=== PATIENT | female | born 1995 | race Caucasian/White ===

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

== ENCOUNTER 2017-04-22 17:43 | Emergency (ER) | payer OTHER ==
[~2017-04-22] VITALS: Ht 165.1 cm; Wt 78.0 kg
[~2017-04-22 17:43] MED LIST changes: +AZIT-57 PO; -CEFD1CAP14 PO; -ZTHM250 PO
[2017-04-22 17:48] VITALS: TEMP 38.5; Ht 165.1 cm; Wt 78.0 kg
[2017-04-22] MEDS ORDERED: AZITTAB PO (18:19)
[2017-04-22 18:57] VITALS: BP 120/78; PULSE 100; O2SAT 97
--- NOTE | 2017-04-23 02:25 | EMERGENCY ROOM VISIT NOTE ---
History First contact with patient: 18:06 Chief Complaint: ILLNESS Stated Complaint: COUGH, CHEST PAIN WITH COUGH, FEVER History of Present Illness The patient is a 22 year old female who presents to the Emergency Room with complaints of a productive cough and fever for the past 2 days. The patient reports being exposed to sick family members approximate 5 days ago. She has had fevers as high as 102.6F. She denies any myalgias, neck pain or significant headache. She has taken OTC cold and flu medications without significant relief. She reports having pneumonia in June of this year. She denies history of asthma or other chronic cardiopulmonary conditions. Review of Systems 10 system review was performed and was negative except for pertinent positives and negatives as indicated in history of present illness Past Medical/Surgical History Surgical Problems: (1) S/P tonsillectomy and adenoidectomy Family History No pertinent family history Social History Smoking Status: Never Smoker Alcohol Use: none Drug Use: none Marital Status: single Housing Status: lives with roommate Occupation Status: [employer] student Current/Historical Medications Scheduled Azithromycin (Zithromax Z-Gomez), 0 PO UD Physical Exam Vital Signs Date Time Temp Pulse Resp B/P (MAP) Pulse Ox O2 Delivery O2 Flow Rate FiO2 04/22/17 18:57 100 16 120/78 97 04/22/17 17:48 38.5 117 16 123/81 97 Room Air Physical Exam CONSTITUTIONAL: Healthy and well nourished. Alert and oriented X 3 with positive affect. Patient does not appear in any acute distress. HEENT: Normocephalic, atraumatic. Pupils equal, round and reactive. Examination shows bilateral mild TM bulging without air-fluid levels or purulent effusion. OROPHARYNX: Mild posterior pharyngeal erythema without tonsillar hypertrophy or exudates. NECK: Full active range of motion without discomfort. No nuchal rigidity. Negative Kernig's, negative Brudzinski sign. RESPIRATORY: Clear to auscultation bilaterally with no wheezing, crackles, rhonchi or stridor. CARDIOVASCULAR: Tachycardic with no murmurs, rubs or gallops. GASTROINTESTINAL: Bowel sounds present in all quadrants. Soft and nontender to palpation. MUSCULOSKELETAL: Full range of motion of all joints without discomfort. INTEGUMENTARY: No rash or other significant dermatologic conditions noted. NEUROLOGIC: No focal neurologic deficits noted. Medical Decision & Procedures ED Course Patient history and physical exam were performed. Nurse's notes were reviewed. Review of vital signs shows an oral temperature of 38.5C. She is also mildly tachycardic at 117 bpm. She is normotensive, and O2 saturation is 97%. Breath sounds are normal. The patient was advised that she likely has a viral upper respiratory infection. She was advised that antibiotics do not kill viruses. She was provided instructions for additional symptomatic relief, including OTC cough medications, decongestants and expectorants. She was also encouraged to alternate ibuprofen and Tylenol as needed for pain and fever. The patient refused any medications while in the emergency department. I did encourage her to follow-up with her PCP or [facility] if symptoms worsen. She was also provided a prescription for a Z-Gomez with any significant worsening symptoms, again foot noting our conversation that antibiotics do not provide any relief with viral infections. The patient voiced understanding of all discharge instructions, was happy with plan of care , and denied any significant pain at the time of discharge. Medical Decision Blood Pressure Screening Patient's blood pressure: Normal blood pressure Impression Primary Impression: Acute bronchitis Departure Information Dispostion Home / Self-Care Condition GOOD Prescriptions Azithromycin (ZITHROMAX Z-GOMEZ) 250 Mg Tab 0 PO UD, #1 PKT 2 TABS DAY 1, THEN 1 TAB DAILY FOR 4 DAYS Prov: Aneudy Rivas PA 04/22/17 Forms HOME CARE DOCUMENTATION FORM, IMPORTANT VISIT INFORMATION Patient Instructions My [facility] Additional Instructions Ibuprofen 800 mg and/or Tylenol 1000 mg every 8 hours for pain/fever. You may also alternate these medications for more effective relief: Ibuprofen --4 HRS--> Tylenol --4 HRS--> ibuprofen --4 HRS--> Tylenol .... Suggest taking Mucinex and Robitussin-DM for additional cough relief. You have been provided a written prescription for an antibiotic if symptoms progressively worsen. Remember that antibiotics do not kill viruses, and will not provide any relief of symptoms if taken early in the infection process. Problem Qualifiers Primary Impression: Acute bronchitis Bronchitis organism: unspecified organism Qualified Codes: J20.9 - Acute bronchitis, unspecified
== END 2017-04-22 18:58 | disposition home or self-care (01) ==
LOC: C.EDB 17:44
DX: J20.9 Acute bronchitis, unspecified (principal)